=== PATIENT | female | born 1980 | race Caucasian/White ===

== ENCOUNTER 2016-10-24 15:19 | Emergency (ER) | payer OTHER ==
[2016-10-24 15:53] VITALS: BP 141/70
--- NOTE | 2016-10-24 15:59 | UC ---
Hip/Pelvis Pain - History Of Current Complaint Chief Complaint: UCBackPain Stated Complaint: BACK PAIN Time Seen by Provider: 10/24/16 15:53 Hx Obtained From: Patient Hx Last Menstrual Period: hx ablation ?: No Onset/Duration: Gradual Onset, Lasting Weeks - 4, Worse Since - 2 days Severity Initially: Mild Severity Currently: Moderate Character Of Pain: Sharp Aggravating Factor(s): Movement, Weight Bearing Alleviating Factor(s): Other - inversion table, ibuprofen, hot packs. Associated Signs And Symptoms: Positive: Negative - Risk Factors Septic Arthritis Risk Factor: Negative - Allergies/Home Medications Allergies/Adverse Reactions: Allergies Allergy/AdvReac Type Severity Reaction Status Date / Time Penicillins Allergy Intermediate Hives Verified 10/24/16 15:46 Home Medications: Home Medications Naproxen [Naproxen 500 MG TABS] 500 mg PO BID PRN 10/24/16 [History Confirmed ] PMH/Surg Hx/FS Hx/Imm Hx Endocrine History Of: Denies: Diabetes Cardiovascular History Of: Denies: Cardiac Disorders Respiratory History Of: Denies: Asthma Cancer History Of: Denies: Breast Cancer - Surgical History Surgical History: Yes Surgery Procedure, Year, and Place: Tubal Ligation, 2005 or 2006, [facility] - Family History Known Family History: Positive: Hypertension Negative: Cardiac Disease, Diabetes - Social History Occupation: Employed Full-time Lives: With Family Alcohol Use: Occasionally Substance Use Type: None Smoking Status (MU): Never Smoked Tobacco Have You Smoked in the Last Year: No - Immunization History Most Recent Influenza Vaccination: none Most Recent Tetanus Shot: unknown Review of Systems Musculoskeletal: Arthralgia All Other Systems Reviewed And Are Negative: Yes Physical Exam Triage Information Reviewed: Yes Appearance: Well-Appearing, Well-Nourished, Pain Distress - especially with any movement. Vital Signs: Initial Vital Signs Temp 98.9 F 10/24/16 15:47 Pulse 85 10/24/16 15:47 Resp 16 10/24/16 15:47 BP 141/70 10/24/16 15:47 Pulse Ox 100 10/24/16 15:47 Vital Signs Reviewed: Yes Eyes: Positive: Conjunctiva Clear Neck exam: Normal Respiratory Exam: Normal Cardiovascular Exam: Normal Abdomen Description: Positive: Nontender Musculoskeletal: Positive: No Edema, ROM Limited @ - Pelvis. Unable to stand up straight Neurological Exam: Normal Psychological Exam: Normal Skin Exam: Normal Procedures - Procedure Summary Procedure Summary: Injection Right Sacroiliac joint: Consent and Time out done. Betadine prep. 1cc kenalog 40 and 4cc each 1%xylo and 0.25% marcaine were injected in a fan pattern into the right SI. Excellent pain relief. Hip Injury Course/Dx - Differential Dx/Diagnosis Differential Diagnosis/HQI/PQRI: Septic Arthritis, Sprain, Strain Provider Diagnoses: Acute Sacroiliitis. S/P right sacroiliiac injection. Discharge - Discharge Plan Condition: Stable Disposition: HOME Patient Education Materials: Sacroiliitis (ED), Sacroiliac Joint Injection (GEN ) Forms: *Work Release Additional Instructions: Please follow up with the chiropractor tomorrow. Please start to do Yoga to prevent future back problems. Youtube: search, beginning yoga for back pain
[2016-10-24] MEDS ORDERED: Triamcinolone Acetonide* 40 MG/ML 1 ML VIAL INTRAARTIC ONE (16:06)
[2016-10-24] MEDS ORDERED: Lidocaine 1% INJ* 10 MG/ML 30 ML SDV INJ ONE (16:06)
[2016-10-24] MEDS ORDERED: Bupivacaine 0.5%* 50 ML VIAL INJ ONE (16:08)
[2016-10-24] MEDS ORDERED: Bupivacaine 0.25% SDV* 30 ML ONE (16:16)
[2016-10-24] MEDS ORDERED: Lidocaine 1%* 5 ML VIAL ONE (16:17)
== END 2016-10-24 16:43 | disposition home or self-care (01) ==
LOC: UCCORT 15:19
DX: M46.1 Sacroiliitis, not elsewhere classified (principal); Z88.0 Allergy status to penicillin
CPT/HCPCS: 20610; 99211; G0463; J3301

== ENCOUNTER 2017-04-15 12:53 | Emergency (ER) | payer OTHER ==
[2017-04-15 14:17] VITALS: BP 138/84
--- NOTE | 2017-04-15 14:47 | UC ---
Throat Pain/Nasal Jack HPI - HPI Summary HPI Summary: 36 YEAR OLD FEMALE PRESENTS WITH COMPLAINS OF SORE THROAT X 1 DAY. - History of Current Complaint Chief Complaint: UCRespiratory Stated Complaint: SORE THROAT,ALLERGIES Time Seen by Provider: 04/15/17 14:42 Hx Last Menstrual Period: n/a - Allergies/Home Medications Allergies/Adverse Reactions: Allergies Allergy/AdvReac Type Severity Reaction Status Date / Time Penicillins Allergy Intermediate Hives Verified 04/15/17 14:17 PMH/Surg Hx/FS Hx/Imm Hx - Surgical History Surgical History: Yes Surgery Procedure, Year, and Place: Tubal Ligation, 2005 or 2006, [facility]; uterine ablation - Family History Known Family History: Positive: None, Hypertension Negative: Cardiac Disease, Diabetes - Social History Alcohol Use: Occasionally Substance Use Type: None Smoking Status (MU): Former Smoker Have You Smoked in the Last Year: No - Immunization History Most Recent Influenza Vaccination: none Most Recent Tetanus Shot: unknown Review of Systems Constitutional: Negative Skin: Negative Eyes: Negative ENT: Dental Pain, Sore Throat, Nasal Discharge, Sinus Congestion Respiratory: Negative Cardiovascular: Negative Gastrointestinal: Negative Genitourinary: Negative Motor: Negative Neurovascular: Negative Musculoskeletal: Negative Neurological: Negative Psychological: Negative All Other Systems Reviewed And Are Negative: Yes Physical Exam Triage Information Reviewed: Yes Vital Signs: Initial Vital Signs Temp 37.7 C 04/15/17 14:10 Pulse 106 04/15/17 14:10 Resp 20 04/15/17 14:10 BP 138/84 04/15/17 14:10 Pulse Ox 100 04/15/17 14:10 Eye Exam: Normal ENT: Positive: Pharyngeal erythema, Nasal congestion Dental Exam: Normal Neck exam: Normal Neck: Positive: 1 Respiratory Exam: Normal Cardiovascular Exam: Normal Abdominal Exam: Normal Musculoskeletal Exam: Normal Neurological Exam: Normal Psychological Exam: Normal Skin Exam: Normal Throat Pain/Nasal Course/Dx - Differential Dx/Diagnosis Provider Diagnoses: SORE THROAT Discharge - Discharge Plan Condition: Stable Disposition: HOME Prescriptions: Azithromycin TAB* [Zithromax TAB (Z-ACACIA) 250 mg #6 tabs] 2 tab PO .TODAY, THEN 1 DAILY #1 acacia LoraTADine TAB(NF) [Claritin 10 MG TAB(NF)] 10 mg PO DAILY #30 tab Magic M W2 Juma/Maal/Nyst/Lido* 15 ml SWISH SPIT QID #120 ml Patient Education Materials: Pharyngitis (ED) Referrals: AL SalterGiorgio [Primary Care Provider] -
== END 2017-04-15 14:56 | disposition home or self-care (01) ==
LOC: UCCORT 12:53
DX: J02.9 Acute pharyngitis, unspecified (principal)
CPT/HCPCS: 87651; 99212; G0463

== ENCOUNTER 2017-05-10 10:59 | Emergency (ER) | payer OTHER ==
--- NOTE | 2017-05-10 11:29 | UC ---
Knee Pain HPI - HPI Summary HPI Summary: 36 y/o female with no PMH of knee pain/ injury with falls last thurs while ETOH , stated was unable to stand due to pain after incident, no swelling, pain over inside of knee. + walking now, increased pain with standing for longer periods , going up stairs. Pain radiates from inner thigh to top of calf bhind knee and to inner front of knee. no warmth. no improvement since incident. - History of Current Complaint Chief Complaint: UCLowerExtremity Stated Complaint: RIGHT KNEE PAIN Time Seen by Provider: 05/10/17 11:04 Hx Obtained From: Patient Hx Last Menstrual Period: n/a Onset/Duration: Sudden Onset, Lasting Days, Still Present Severity Initially: Moderate Severity Currently: Moderate Pain Scale Used: 0-10 Numeric - Allergies/Home Medications Allergies/Adverse Reactions: Allergies Allergy/AdvReac Type Severity Reaction Status Date / Time Penicillins Allergy Intermediate Hives Verified 05/10/17 11:20 PMH/Surg Hx/FS Hx/Imm Hx Previously Healthy: Yes - Surgical History Surgical History: Yes Surgery Procedure, Year, and Place: Tubal Ligation, 2005 or 2006, [facility]; uterine ablation - Family History Known Family History: Positive: None, Hypertension Negative: Cardiac Disease, Diabetes - Social History Alcohol Use: Occasionally Substance Use Type: None Smoking Status (MU): Former Smoker Have You Smoked in the Last Year: No - Immunization History Most Recent Influenza Vaccination: none Most Recent Tetanus Shot: unknown Review of Systems Musculoskeletal: Arthralgia, Calf Tenderness, Decreased ROM, Myalgia All Other Systems Reviewed And Are Negative: Yes Physical Exam Triage Information Reviewed: Yes Appearance: Well-Appearing, No Pain Distress, Well-Nourished Vital Signs Reviewed: Yes Musculoskeletal: Positive: ROM Intact, No Edema, Other: - ROM R knee 0-120, + tenderness to palpation over medial aspect of knee over MCL, pes. no ecchymosis, warmth, no instability to valgus/ varus stressing, neg ACL, PCL testing, no M/ L JL tenderness, no pain with palpation posterior knee. strength 5/5 with flex/ exte r knee. Neg valeriy Neurological: Positive: Alert, Muscle Tone Normal Psychological Exam: Normal Skin: Positive: Other - small superficial abrasions over b/l knees Knee Pain Course/Dx - Course Course Of Treatment: MCL sprain, hamstrain strain. hinged knee brace recommended, RICE, follow up within 1 week if no improvement - Differential Dx/Diagnosis Differential Diagnosis/HQI/PQRI: Dislocation, Fracture (Closed), Fracture (Open) , Sprain, Strain, Tendonitis Provider Diagnoses: MCL Sprain, hamstring strain r knee Discharge - Discharge Plan Condition: Good Disposition: HOME Prescriptions: Elastic Bandages & Supports [Knee Brace Adjustable Hin] 1 mis TOPICAL DAILY #1 mis Ibuprofen TAB* [Motrin TAB* 800 MG] 800 mg PO Q6H #90 tab Meds/Orders/Equipment: Orthotic Device/Brace Location: Determined By Patient Patient Education Materials: Knee Sprain (ED) Referrals: AL Liu [Primary Care Provider] - Additional Instructions: - increased rest, ICE 20 mins on, 20 mins off, brace for comfort x 2 weeks - If no improvement within 2 week follow up with orthopedics - Hinged knee brace for stability, may try over the counter brace or YOHAN wrap - Motrin 400-800mg every 6 hours for pain, inflammation - Continue stretching exercises, no running hiking x 1 week
[2017-05-10 12:11] VITALS: BP 133/86
== END 2017-05-10 12:11 | disposition home or self-care (01) ==
LOC: UCCORT 10:59
DX: S83.411A Sprain of medial collateral ligament of right knee, initial encounter (principal); W19.XXXA Unspecified fall, initial encounter; Y92.9 Unspecified place or not applicable; Z88.0 Allergy status to penicillin
CPT/HCPCS: 99212; G0463

== ENCOUNTER 2018-06-11 14:29 | Emergency (ER) | payer BC, OTHER ==
[2018-06-11 16:31] VITALS: BP 147/102
--- NOTE | 2018-06-11 16:44 | UC ---
Shoulder Pain HPI - HPI Summary HPI Summary: 37 y/o female presents to the urgent care c/o left shoulder pain s/p grabbing a log in the wrong way yesterday. Pain radiates to her left upper arm. Pain is dull at rest 4/10 and sharp w/ movement 8/10. Pt denies numbness or tingling sensation over the left arm, Pt has taking Ibuprofen 600mg PO yesterday to alleviate symptoms. No meds today. No Hx of shoulder injury. Pt denies SOB, chest pain, abdominal pain, N/V/D. - History of Current Complaint Chief Complaint: UCUpperExtremity Stated Complaint: LEFT SHOULDER PAIN Time Seen by Provider: 06/11/18 16:43 Hx Obtained From: Patient Hx Last Menstrual Period: Uterine Ablasion, no menes since-2015 Onset/Duration: Sudden Onset, Lasting Days - 1 day, Still Present, Worse Since - today Timing: Constant Severity Initially: Mild Severity Currently: Moderate Location Of Pain: Is Discrete @ - left shoulder Pain Intensity: 5 Pain Scale Used: 0-10 Numeric Character: Sharp - w/ movement, Dull - at rest Aggravating Factor(s): Movement, Lifting, External Rotation, Abduction Alleviating Factor(s): Rest, Ice, OTC Meds Associated Signs And Symptoms: Positive: Negative. Negative: Swelling, Fever, Weakness, Numbness/Tingling Related History: Dominant Hand Right - Risk Factors Non-Orthopedic Risk Factor: Negative DVT Risk Factors: Negative Septic Arthritis Risk Factor: Negative - Allergies/Home Medications Allergies/Adverse Reactions: Allergies Allergy/AdvReac Type Severity Reaction Status Date / Time Penicillins Allergy Hives Verified 06/11/18 16:23 Home Medications: Home Medications Omeprazole CAP* [Prilosec CAP* 20 MG] 40 mg PO DAILY 06/11/18 [History Confirmed 06/11/18] PMH/Surg Hx/FS Hx/Imm Hx Previously Healthy: Yes GI/ History: Gastroesophageal Reflux Psychological History: Anxiety - Surgical History Surgical History: Yes Surgery Procedure, Year, and Place: 2007 Tubal Ligation. 2016 - uterine ablation. BREAST AUGMENTATION. WISDOM TEETH SURG REMOVED. KNEE - SCOPED - ? Rt. Left Breast Bioposy x 2 - Family History Known Family History: Positive: Hypertension, Diabetes Negative: Cardiac Disease - Social History Occupation: Employed Full-time Lives: With Family Alcohol Use: Occasionally Alcohol Amount: Weekends Substance Use Type: None Smoking Status (MU): Former Smoker Have You Smoked in the Last Year: No - Immunization History Most Recent Influenza Vaccination: none Most Recent Tetanus Shot: unknown Review of Systems Constitutional: Negative Skin: Negative Eyes: Negative ENT: Negative Respiratory: Negative Cardiovascular: Negative Gastrointestinal: Negative Genitourinary: Negative Motor: Negative Neurovascular: Negative Musculoskeletal: Decreased ROM - left shoulder, Other: - left shoulder pain s/p injury Neurological: Negative Psychological: Negative Is Patient Immunocompromised?: No All Other Systems Reviewed And Are Negative: Yes Physical Exam - Summary Physical Exam Summary: Vital Signs Reviewed: Yes GENERAL: Well-Appearing, No Pain Distress, Well-Nourished - female w/o any apparent pain distress Eyes: Positive: Conjunctiva Clear - PERRL,EOMI ENT: Positive: Normal ENT inspection, Hearing grossly normal, Pharyngeal erythema - mild, Nasal drainage - clear, Uvula midline Neck: Positive: Supple, Nontender, No Lymphadenopathy Respiratory: Positive: Chest non-tender, Lungs clear, Normal breath sounds, No respiratory distress Cardiovascular: Positive: RRR, No Murmur, Pulses Normal, Brisk Capillary Refill Abdomen Description: Positive: Nontender, No Organomegaly, Soft. Negative: CVA Tenderness (R), CVA Tenderness (L) Bowel Sounds: Positive: Present Musculoskeletal: LF shoulder: The L shoulder is without obvious asymmetry or deformity when compared to the R shoulder. NO ecchymosis or bruising, no crepitus. No bony deformity or prominence of humeral head. No erythema, warmth. No Point Tenderness to palpation over the clavicle, or scapula. positive tenderness over Acromioclavicular joint and humeral head . NT to palpation of the bicipital groove . NT to palpation of the muscles of the sternocleidomastoid , pectoralis, biceps/triceps, deltoid, trapezius, . Limited ROM due to pain especially in adduction and abduction.on both passive and active, internal/ external rotation, flexion/extension. "empty can and drop arm test unable to perform due to pain. No axillary tenderness or lymphadenopathy. Normal sensation over the deltoid and fingers. Distal motor and neurovascular status is intact. Neurological Exam: Normal Psychological Exam: Normal Skin Exam: Normal Triage Information Reviewed: Yes Vital Signs: Initial Vital Signs Temp 97.7 F 06/11/18 16:26 Pulse 83 06/11/18 16:26 Resp 18 06/11/18 16:26 BP 147/102 06/11/18 16:26 Pulse Ox 100 06/11/18 16:26 Shoulder Course/Dx - Course Course Of Treatment: 37 y/o female presents to the urgent care c/o left shoulder pain s/p grabbing a log in the wrong way yesterday. Pain radiates to her left upper arm. Pain is dull at rest 4/10 and sharp w/ movement 8/10. Pt denies numbness or tingling sensation over the left arm, Pt has taking Ibuprofen 600mg PO yesterday to alleviate symptoms. No meds today. No Hx of shoulder injury. Pt denies SOB, chest pain, abdominal pain, N/V/D.Hx obtained. LF shoulder X-ray ordered: Impression: noraml radigraphic x-ray of left shoulder. Possibly a shoulder sprain. Pt's Rx Naproxen PO and immobilized w/ a shoulder sling for 2-3 days. Advised to f/u with PT referral for further evaluation and Orthopedic referral if not improvement of symptoms. Pt's BP is elevated today advised to decrease salt in diet, monitor BP and f/u with PCP for further management. D/c instructions explained. Pt understood and agreed w/ plan of care. - Differential Dx/Diagnosis Differential Diagnosis/HQI/PQRI: Arthritis, Contusion, Dislocation, Fracture ( Closed), Rotator Cuff Injury, Sprain, Strain, Tendonitis Provider Diagnoses: 1- Left shoulder pain s/p injury. 2- Left shoulder Tendonitis. 3- Elevated BP w/o Hx of HTN Discharge - Sign-Out/Discharge Documenting (check all that apply): Patient Departure All imaging exams completed and their final reports reviewed: Yes - Discharge Plan Condition: Stable Disposition: HOME Prescriptions: Naproxen TAB* [Naprosyn 250 mg TAB*] 250 mg PO Q8H PRN #30 tab PRN Reason: Pain Patient Education Materials: Shoulder Sprain (ED), Low-Sodium Diet (ED) Referrals: Cristy Munroe MD [Primary Care Provider] - 1 Week Phong Matson MD [Medical Doctor] - 1 Week Additional Instructions: 1-Please take medications as directed to alleviate pain and swelling. 2-Please apply ice, keep your shoulder immobilized with the shoulder sling for 3 -4 days and then resume movement slowly 3- Please f/u with Orthopedic Dr Matson or your PCP in 1 week is not improvement of symptoms for further evaluation and treatment. 4-Your BP is elevated today. please decrease salt in your diet, monitor BP and if it continues to be elevated please f/u with your PCP for further management - Billing Disposition and Condition Condition: STABLE Disposition: Home
[2018-06-11] MEDS ORDERED: Ketorolac INJ* 30 MG/ML 1 ML VIAL IM ONE (16:53)
--- NOTE | 2018-06-11 17:16 | RAD ---
INDICATION: Pain and decreased range of motion at the left shoulder COMPARISON: None. TECHNIQUE: 4 views of the left shoulder were obtained. FINDINGS: The adequately corticated bones are in normal alignment. Joint spaces appear maintained. No fracture, dislocation or focal bony abnormality is seen. IMPRESSION: Normal radiograph of the left shoulder. If the patient's symptoms persist, follow-up imaging is recommended.
== END 2018-06-11 17:45 | disposition home or self-care (01) ==
LOC: UCCORT 14:29
DX: M75.92 Shoulder lesion, unspecified, left shoulder (principal); X50.0XXA Overexertion from strenuous movement or load, initial encounter; Y93.89 Activity, other specified; Y92.9 Unspecified place or not applicable; R03.0 Elevated blood-pressure reading, without diagnosis of hypertension; Z88.0 Allergy status to penicillin
CPT/HCPCS: 96372; 99213; G0463; J1885

== ENCOUNTER 2018-09-10 11:25 | Emergency (ER) | payer BC ==
[2018-09-10 12:12] VITALS: BP 141/87
--- NOTE | 2018-09-10 12:36 | UC ---
Back Pain HPI - HPI Summary HPI Summary: 38 year old female presents with 1 week history of lower back pain. States she has history of bulging disc to L5-S1. Reports she was descending stairs this morning and had sudden onset of severe right lower back pain that radiates down her right leg to her knee. Describes pain as "sharp". Took naproxen without relief in pain. States has appointment scheduled with chiropractor tomorrow. Denies fever, chills, abdominal pain, nausea, vomiting, dysuria, frequency, urgency, hematuria, numbness, tingling, weakness of lower extremities, or loss of bowel or bladder control. - History of Current Complaint Chief Complaint: UCBackPain Stated Complaint: LOWER BACK COMPLAINT Time Seen by Provider: 09/10/18 12:19 Hx Obtained From: Patient Hx Last Menstrual Period: Uterine Ablasion, no menes since-2015 ?: No Onset/Duration: Sudden Onset Severity Currently: Severe Pain Intensity: 6 Back Pain: Radiates To - right leg Character: Sharp Aggravating Factor(s): Movement, Bending, Walking Alleviating Factor(s): Nothing Associated Signs And Symptoms: Positive: Pain with Weight Bearing. Negative: Fever, Weakness, Numbness, Tingling, Abdominal Pain, Flank Pain, Bladder Incontinence, Bowel Incontinence - Allergies/Home Medications Allergies/Adverse Reactions: Allergies Allergy/AdvReac Type Severity Reaction Status Date / Time Penicillins Allergy Hives Verified 09/10/18 12:06 Home Medications: Home Medications Naproxen TAB* [Naprosyn 250 mg TAB*] 1,000 mg PO ONCE 09/10/18 [History Confirmed 09/10/18] PMH/Surg Hx/FS Hx/Imm Hx Previously Healthy: Yes GI/ History: Gastroesophageal Reflux Psychological History: Depression - Surgical History Surgical History: Yes Surgery Procedure, Year, and Place: 2007 Tubal Ligation. 2016 - uterine ablation. BREAST AUGMENTATION. WISDOM TEETH SURG REMOVED. KNEE - SCOPED - ? Rt. Left Breast Bioposy x2 - Family History Known Family History: Positive: Hypertension, Diabetes - Social History Occupation: Employed Full-time Lives: With Family Alcohol Use: Occasionally Alcohol Amount: Weekends Substance Use Type: None Smoking Status (MU): Former Smoker Have You Smoked in the Last Year: No - Immunization History Most Recent Influenza Vaccination: none Most Recent Tetanus Shot: unknown Review of Systems All Other Systems Reviewed And Are Negative: Yes Constitutional: Negative: Fever, Chills Skin: Negative: Rash Gastrointestinal: Negative: Abdominal Pain, Vomiting, Nausea Genitourinary: Negative: Dysuria, Hematuria, Frequency, Urgency Motor: Negative: Weakness Neurovascular: Negative: Decreased Sensation Musculoskeletal: Positive: Other: - See HPI Is Patient Immunocompromised?: No Physical Exam - Summary Physical Exam Summary: GENERAL APPEARANCE: Well developed, well nourished, alert and cooperative. Appears to be uncomfortable leaning over exam table in position of comfort. HEAD: Atraumatic. normocephalic. CARDIAC: Normal S1 and S2. No S3, S4 or murmurs. Rhythm is regular. There is no peripheral edema, cyanosis or pallor. Extremities are warm and well perfused. Capillary refill is less than 2 seconds. LUNGS: Clear to auscultation and percussion without rales, rhonchi, wheezing or diminished breath sounds. ABDOMEN: Positive bowel sounds. Soft, nondistended, nontender. No guarding or rebound. No masses or hepatosplenomegally. No CVA tenderness. MUSKULOSKELETAL: ROM intact to all extremities. No joint erythema or tenderness. Normal muscular development. BACK: Examination of the spine reveals limping gait to right. No spinal deformity or tenderness. Mild soft tissue tenderness to right lower back without spasm. EXTREMITIES: No significant deformity or joint abnormality. No edema. Peripheral pulses intact. NEUROLOGICAL: Strength and sensation symmetric and intact throughout. SKIN: Skin normal color, texture and turgor with no lesions or eruptions. Triage Information Reviewed: Yes Vital Signs: Initial Vital Signs Temp 98.1 F 09/10/18 12:06 Pulse 97 09/10/18 12:06 Resp 18 09/10/18 12:06 BP 141/87 09/10/18 12:06 Pulse Ox 99 09/10/18 12:06 Vital Signs Reviewed: Yes Back Pain Course/Dx - Course Course Of Treatment: 38 year old female presents with 1 week history of lower back pain. States she has history of bulging disc to L5-S1. Reports she was descending stairs this morning and had sudden onset of severe right lower back pain that radiates down her right leg to her knee. Describes pain as "sharp". Took naproxen without relief in pain. States has appointment scheduled with chiropractor tomorrow. Denies fever, chills, abdominal pain, nausea, vomiting, dysuria, frequency, urgency, hematuria, numbness, tingling, weakness of lower extremities, or loss of bowel or bladder control. Exam reveals adult female who appears uncomfortable leaning over exam table in position of comfort. No tenderness over the spine. Mild soft tissue tenderness to right lumbar back. Strength and sensation intact to lower extremities. Since she already took naproxen at home earlier, provider her with a dose of hydrocodone-acetaminophen 5 mg/325 mg 1 tab in clinic. The [facility] was consulted and safe to prescribe. Reference #: [id number]. was driving. She is to continue with naproxen 500 mg BID and use cyclobenzaprine 1 tab every 8 hours as needed for severe pain or spasm. She is to keep her appointment with her chiropracter tomorrow. Follow up with PCP in 7 days if symptoms do not improve. Warning symptoms reviewed with patient. Verbalizes understanding and agrees with POC. - Differential Dx/Diagnosis Provider Diagnosis: Sciatica of right side associated with disorder of lumbar spine Discharge - Sign-Out/Discharge Documenting (check all that apply): Patient Departure All imaging exams completed and their final reports reviewed: No Studies - Discharge Plan Condition: Stable Disposition: HOME Prescriptions: Cyclobenzaprine HCl 10 mg PO Q8HR #21 tablet Patient Education Materials: Sciatica (ED) Referrals: Cristy Munroe MD [Primary Care Provider] - 7 Days (If no improvement in symptoms) Additional Instructions: Your history and physical are consistent with sciatica which is likely related to your underlying back problems. You were given a dose of a narcotic pain medication called hydrocodone- acetaminophen 5 mg/325 mg 1 tablet in the clinic for the pain. This medication does cause drowsiness so do not drive or operate machinery. Continue taking naproxen 500 mg every 12 hours with food for the next 7 days for pain. After 7 days, you may take every 12 hours as needed. Take cyclobenzaprine (Flexeril) 1 tab every 8 hours as needed for severe pain or spasm. This medication also causes drowsiness so do not take and drive or operate machinery. Keep your appointment with your chiropractor as scheduled tomorrow. Follow up with your primary care provider in 7 day if no improvement in symptoms. Seek immediate medical attention in the emergency room if you develop fever greater than 100.5 F, have worsening pain despite taking pain medication, develop numbness, tingling, or weakness of the lower extremities, lose control of your bowel or bladder, or have any worsening of symptoms. - Billing Disposition and Condition Condition: STABLE Disposition: Home
[2018-09-10] MEDS ORDERED: HYDROcodone/ACETAMIN 5-325 MG* 1 TAB PO ONE (13:06)
== END 2018-09-10 13:25 | disposition home or self-care (01) ==
LOC: UCCORT 11:25
DX: M54.31 Sciatica, right side (principal); M51.27 Other intervertebral disc displacement, lumbosacral region; Z88.0 Allergy status to penicillin; Z87.891 Personal history of nicotine dependence
CPT/HCPCS: 99212; G0463

== ENCOUNTER 2018-11-06 11:10 | Emergency (ER) | payer BC ==
[2018-11-06 11:33] VITALS: BP 159/92
--- NOTE | 2018-11-06 12:00 | UC ---
Throat Pain/Nasal Jack HPI - HPI Summary HPI Summary: 38 year old female with no PMH other then recent GI upset, being seen and evaluated by GI currently, presents iwth 2 weeks of sinus congestion, pressure, increasing, tried OTC like antihistamine, benadryl, alkaselzer sinus without benefit, continues to have pain, headache, worsening. no fever, chills, no ear pain, no other symptoms. + green drainage from nose - History of Current Complaint Chief Complaint: UCGeneralIllness Stated Complaint: SINUSES Time Seen by Provider: 11/06/18 11:40 Hx Obtained From: Patient Hx Last Menstrual Period: ablation ?: No - ablation Onset/Duration: Sudden Onset, Lasting Weeks, Worse Since - worsening daily Severity: Severe Pain Intensity: 6 Pain Scale Used: 0-10 Numeric Cough: Nonproductive - Allergies/Home Medications Allergies/Adverse Reactions: Allergies Allergy/AdvReac Type Severity Reaction Status Date / Time Penicillins Allergy Hives Verified 11/06/18 11:28 Home Medications: Home Medications L.acidoph,Paracasei, B.lactis [Probiotic] 1 each PO DAILY 11/06/18 [History Confirmed 11/06/18] Multivitamins/Minerals TAB* [Theragran/minerals TAB*] 1 tab PO DAILY 11/06/18 [ History Confirmed 11/06/18] PMH/Surg Hx/FS Hx/Imm Hx Previously Healthy: Yes - Surgical History Surgical History: Yes Surgery Procedure, Year, and Place: 2007 Tubal Ligation. 2016 - uterine ablation. BREAST AUGMENTATION. WISDOM TEETH SURG REMOVED. KNEE - SCOPED - ? Rt. Left Breast Bioposy x2 - Family History Known Family History: Positive: None, Hypertension, Diabetes Negative: Cardiac Disease - Social History Alcohol Use: Occasionally Alcohol Amount: Weekends Substance Use Type: None Smoking Status (MU): Former Smoker Have You Smoked in the Last Year: No - Immunization History Most Recent Influenza Vaccination: none Most Recent Tetanus Shot: unknown Review of Systems All Other Systems Reviewed And Are Negative: Yes Constitutional: Positive: Fatigue Skin: Positive: Negative Eyes: Positive: Negative ENT: Positive: Nasal Discharge, Sinus Congestion, Sinus Pain/Tenderness Respiratory: Positive: Negative Is Patient Immunocompromised?: No Physical Exam Triage Information Reviewed: Yes Appearance: No Pain Distress, Well-Nourished, Ill-Appearing - mild Vital Signs: Initial Vital Signs Temp 98.4 F 11/06/18 11:29 Pulse 76 11/06/18 11:29 Resp 18 11/06/18 11:29 BP 159/92 11/06/18 11:29 Pulse Ox 100 11/06/18 11:29 Eyes: Positive: Conjunctiva Clear ENT: Positive: Hearing grossly normal, Pharynx normal, TMs normal, Sinus tenderness - b/l frontal, max, Uvula midline. Negative: TM bulging, TM dull, TM red, Tonsillar swelling, Tonsillar exudate Neck: Positive: Supple, Nontender, No Lymphadenopathy Respiratory: Positive: Chest non-tender, Lungs clear, Normal breath sounds, No respiratory distress. Negative: Crackles, Rhonchi, Stridor, Wheezing Cardiovascular: Positive: RRR, No Murmur Psychological Exam: Normal Skin Exam: Normal Throat Pain/Nasal Course/Dx - Course Course Of Treatment: sinusitis, abx given , continue OTC care - Differential Dx/Diagnosis Differential Diagnosis/HQI/PQRI: Sinusitis Provider Diagnosis: Sinusitis Discharge - Sign-Out/Discharge Documenting (check all that apply): Patient Departure All imaging exams completed and their final reports reviewed: No Studies - Discharge Plan Condition: Good Disposition: HOME Prescriptions: Azithromyxin ACACIA (NF) [Z-Acacia (Zithromax) 250 mg tabs #6] 2 tab PO .TODAY, THEN 1 DAILY #6 tab Patient Education Materials: Sinusitis (ED) Forms: *Work Release Referrals: Chuck Borrero MD [Primary Care Provider] - Additional Instructions: - Increase fluid intake - ANtibiotics as directed - COntinue over the counter medications for symptoms - FOllow up with primary physician within 2-3 days or sooner if no improvement & to recheck blood pressure - Billing Disposition and Condition Condition: GOOD Disposition: Home
== END 2018-11-06 12:05 | disposition home or self-care (01) ==
LOC: UCCORT 11:10
DX: J32.9 Chronic sinusitis, unspecified (principal); Z88.0 Allergy status to penicillin; Z87.891 Personal history of nicotine dependence
CPT/HCPCS: 99212; G0463

== ENCOUNTER 2018-11-30 16:54 | Emergency (ER) | payer BC ==
[2018-11-30 18:07] VITALS: BP 155/92
--- NOTE | 2018-11-30 18:32 | ED ---
HPI Chest Pain - HPI Summary HPI Summary: pain across the back upper back ,worse with deep breathing, noted some shortness of breath. No association with exertion, sharp pain with pleuritic component. non smoker, No prior hx. of dvt or PE. - History of Current Complaint Chief Complaint: UCBackPain Time Seen by Provider: 11/30/18 17:58 Hx Obtained From: Patient Hx Last Menstrual Period: ABLATION IN 2016 Onset/Duration: Started Days Ago Timing: Intermittent Initial Severity: Moderate Current Severity: Moderate Pain Intensity: 7 Chest Pain Location: Lower Sternal Chest Pain Radiates To:: Back, Shoulder Character: Sharp/Stabbing Aggravating Factor(s): Nothing Alleviating Factor(s): Rest - Allergy/Home Medications Allergies/Adverse Reactions: Allergies Allergy/AdvReac Type Severity Reaction Status Date / Time Penicillins Allergy Hives Verified 11/06/18 11:28 Home Medications: Home Medications Hyoscyamine TAB* [Anaspaz 0.125 MG TAB*] 1 each PO BID 11/30/18 [History Confirmed 11/30/18] PMH/Surg Hx/FS Hx/Imm Hx Endocrine/Hematology History: Denies: Hx Diabetes Cardiovascular History: Denies: Hx Hypertension, Hx Pacemaker/ICD Respiratory History: Denies: Hx Asthma GI History: Reports: Hx Irritable Bowel History: Denies: Hx Renal Disease Sensory History: Denies: Hx Hearing Aid Psychiatric History: Denies: Hx Panic Disorder - Cancer History Hx Chemotherapy: No Hx Radiation Therapy: No - Surgical History Surgery Procedure, Year, and Place: 2007 Tubal Ligation. 2016 - uterine ablation. BREAST AUGMENTATION. WISDOM TEETH SURG REMOVED. KNEE - SCOPED - ? Rt. Left Breast Bioposy x2 Infectious Disease History: No Infectious Disease History: Denies: Hx Clostridium Difficile, Hx Hepatitis, Hx Human Immunodeficiency Virus (HIV), Hx of Known/Suspected MRSA, Hx Shingles, Hx Tuberculosis, Hx Known/ Suspected VRE, Hx Known/Suspected VRSA, History Other Infectious Disease, Traveled Outside the [place] in Last 30 Days - Family History Known Family History: Positive: None, Hypertension, Diabetes Negative: Cardiac Disease - Social History Alcohol Use: Occasionally Alcohol Amount: Weekends Substance Use Type: Reports: None Smoking Status (MU): Former Smoker Have You Smoked in the Last Year: No Review of Systems Constitutional: Negative Eyes: Negative ENT: Negative Cardiovascular: Negative Respiratory: Other Positive: Shortness Of Breath Positive: Abdominal Pain, Diarrhea Genitourinary: Negative Musculoskeletal: Negative All Other Systems Reviewed And Are Negative: Yes Physical Exam Triage Information Reviewed: Yes Vital Signs On Initial Exam: Initial Vitals Temp Pulse Resp BP Pulse Ox 36.6 C 80 22 155/92 99 11/30/18 17:59 11/30/18 17:59 11/30/18 17:59 11/30/18 17:59 11/30/18 17:59 Vital Signs Reviewed: Yes Appearance: Positive: Well-Appearing, Pain Distress Skin: Positive: Warm, Dry Head/Face: Positive: Normal Head/Face Inspection Eyes: Positive: Normal ENT: Positive: Normal ENT inspection Neck: Positive: Supple Respiratory/Lung Sounds: Positive: Clear to Auscultation Cardiovascular: Positive: Normal Abdomen Description: Positive: Other: - diffusely mildly tender , no rebound , rigidity Bowel Sounds: Positive: Present Diagnostics - Vital Signs Vital Signs Temp Pulse Resp BP Pulse Ox 11/30/18 17:59 36.6 C 80 22 155/92 99 - Laboratory Lab Statement: Any lab studies that have been ordered have been reviewed, and results considered in the medical decision making process. Chest Pain Course/Dx - Diagnoses Provider Diagnoses: Pleuritic chest pain, Hematuria Is Visit Related: No Discharge - Sign-Out/Discharge Documenting (check all that apply): Patient Departure All imaging exams completed and their final reports reviewed: Yes - Discharge Plan Condition: Fair Disposition: HOME-RECOMMEND TO ED Patient Education Materials: Pulmonary Embolism (ED) Referrals: Chuck Borrero MD [Primary Care Provider] - - Billing Disposition and Condition Condition: FAIR Disposition: Home-Recommend to ED
[2018-11-30] MEDS ORDERED: Ondansetron ODT TAB* 4 MG PO ONE (18:36)
--- NOTE | 2018-12-01 08:16 | UC ---
- Progress Note Progress Note: Patient Name: ANNE COBB Medical Record#: [id number] Ordering Physician: Agustin Colon MD Acct.#: [id number] : 1980 Age: 38 Sex: F [place] [facility] [place] Date: 11/30/181814 ADM Status: DEP ER Order Information: CHEST PA & LAT 2 VWS Accession Number: [id number] CPT: 40982 INDICATION: Chest pain. COMPARISON: There are no relevant prior studies available for comparison. TECHNIQUE: Dual-energy PA and lateral views of the chest were obtained. FINDINGS: The heart is within normal limits in size. Mediastinal and hilar contours appear within normal limits. The lungs are clear. No pleural effusion is present. IMPRESSION: NO EVIDENCE FOR ACTIVE CARDIOPULMONARY DISEASE. R0 Preliminary Imaging Read R0 <Electronically signed by Del Sequeira MD in OV> 12/01/18731 Dictated By: Del Sequeira MD Dictated Date/Time: 12/01/18731 Transcribed Date/Time: 12/01/18730 Copy to: CC:Chuck Borrero MD; Agustin Colon MD Imaging - [facility] Imaging - [facility] [address] [place] [address] ph ([phone]) ph ([phone]) ph ([phone]) This report is only to be considered final once signed by the Provider(s) as displayed in the "<Electronically Signed by >" field (s). Absence of a signature indicates the report is in a draft status and still needs to be finalized. In the event this document was created by someone other than the signing Provider, the individual initiating the document will be listed in the "Entered by:" or "Dictated by:" mccarthy. 1 of 1 Course/Dx - Diagnoses Provider Diagnoses: Pleuritic chest pain, Hematuria Is Visit Related: No Discharge - Sign-Out/Discharge Documenting (check all that apply): Post-Discharge Follow Up All imaging exams completed and their final reports reviewed: Yes - Discharge Plan Condition: Fair Disposition: HOME-RECOMMEND TO ED Patient Education Materials: Pulmonary Embolism (ED) Referrals: Chuck Borrero MD [Primary Care Provider] - - Billing Disposition and Condition Condition: FAIR Disposition: Home-Recommend to ED
== END 2018-11-30 19:27 | disposition home health service (06) ==
LOC: UCCORT 16:54
DX: R07.89 Other chest pain (principal); R31.9 Hematuria, unspecified; M54.89 Other dorsalgia; Z88.0 Allergy status to penicillin; Z87.891 Personal history of nicotine dependence
CPT/HCPCS: 71046; 81003; 93005; 99212; A9270-GY; G0463

== ENCOUNTER 2019-01-14 12:00 | Emergency (ER) | payer BC ==
--- OUTSIDE RECORDS SUMMARY | 2019-01-14 13:09 | XMS REPORT | Continuity of Care Document ---
:1980 External Reference #:[id number] Author Name SABINE Cadena-Danica Address [address] [place] [address] Care Team Providers Name Role Phone Zainab Conroy V, FNP Primary Care Physician Unavailable Payers Date Identification Numbers Payment Provider Subscriber Policy Number: [id number] /BS Of SAUD Mary Sal PayID: [id number] [address] [address] [place] [address] Advance Directives Description No Information Available Problems Date Description Provider Status Onset: 12/12/2018 Esophagitis Chetna White M.D. Active Onset: 12/12/2018 Flatulence, eructation and gas pain Chetna White M.D. Active Onset: 12/12/2018 Allergic rhinitis Chetna White M.D. 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 Home Environment Has a window air conditioner Home Environment Stairs are present Home Environment Unfinished Basement Home Environment Mattress is 10 years old Home Environment Mattress is not encased in an allergy proof case Home Environment Regular Mattress Home Environment Pillows are not encased in an allergy proof case Home Environment Pillows are polyester Home Environment Does not use a dehumidifier Home Environment There are no draperies in the home Home Environment The home is evangelina Home Environment The floors are carpeted Home Environment The floors are tile Home Environment The floors are wood Home Environment Uses forced air heating Home Environment Uses natural gas heating Smoke-Free Home is smoke-free Smoke-Free Work is smoke-free Pets 1 dog 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[employer] ETOH Use Occasionally consumes alcohol Tobacco Use Start: Unknown End: Patient is a former quit 12 years ago Unknown smoker Recreational Drug Use Denies Drug Use Allergies, Adverse Reactions, Alerts Date Description Reaction Status Severity Comments 12/12/2018 Penicillin Active Possibly Medications Medication Date Status Form Strength Qnty SIG Indications Ordering Provider Escitalopram Active Tablets 20mg take 1 Unknown Oxalate 000 tablet by mouth once daily Hyoscyamine Active Tablets ER 0.375mg take 1 Unknown Sulfate ER 000 12HR tablet by mouth every 12 hours [address] Active Capsules DR 40mg 1 tab Unknown 000 daily. Ibu Active Tablets 600mg take 1 Unknown 000 tablet by mouth three times a day if needed Alprazolam Active Tablets 0.25mg take 1 Unknown 000 tablet by mouth once daily if needed maximum daily dose of 1 Vitamin D High Active Capsules 1000Unit 1 tablets Unknown Potency 000 by mouth everyday. Probiotic Active Capsules 1 cap Unknown Acidophilus 000 daily. Beads Immunizations Description No Information Available Vital Signs Date Vital Result Comment 12/26/2018 1:48pm Height 64 inches 5'4" Weight 227.00 lb Weight 102.967 kg Respiratory Rate 20 /min Heart Rate 85 /min O2 % BldC Oximetry 98 % BP Systolic 144 mmHg BP Diastolic 90 mmHg BMI (Body Mass Index) 39.0 kg/m2 12/12/2018 9:16am Height 64 inches 5'4" Weight 225.00 lb Weight 102.060 kg Respiratory Rate 18 /min Heart Rate 80 /min O2 % BldC Oximetry 97 % BP Systolic 137 mmHg BP Diastolic 80 mmHg BMI (Body Mass Index) 38.6 kg/m2 Results Test Date Facility Test Result H/L Range Note Laboratory test 12/13/2018 [facility] Cat <0.10 kU/L Class 0 1 finding [address] [facility] Hair/[place] [address] [phone] Dog Hair/Dander <0.10 kU/L Class 0 D Farinae Mite <0.10 kU/L Class 0 D Pteronyssinus 0.26 kU/L Class 0/I Rast Common Silver Birch T3 <pending> [place],White <0.10 kU/L Class 0 Maple/Riley Ige T001 <0.10 kU/L Class 0 Demarco <0.10 kU/L Class 0 Orchard Grass <0.10 kU/L Class 0 Ragweed,Short/ <0.10 kU/L Class 0 Walker Elder,Rough W016 <0.10 kU/L Class 0 Rast Common Pigweed <pending> Rast Farias's Quarters w10 <pending> Rast Plantain, Bengali W9 <pending> Alternaria Alternata <0.10 kU/L Class 0 Apergillis Fumigatus Ige <0.10 kU/L Class 0 Rast AAA Foods 12 12/13/2018 [facility] Derry <0.10 kU /L Class 0 Panel [address] [place] [address] [phone] Egg White <0.10 kU/L Class 0 Milk (Cow) <0.10 kU/L Class 0 Peanut <0.10 kU/L Class 0 2 Soybean <0.10 kU/L Class 0 Wheat <0.10 kU/L Class 0 Beef <0.10 kU/L Class 0 Chicken <0.10 kU/L Class 0 Chocolate/Bowie F052 <0.10 kU/L Class 0 F033 [place] <0.10 kU/L Class 0 Rice <0.10 kU/L Class 0 Tomato <0.10 kU/L Class 0 Laboratory test 12/13/2018 [facility] Birch,White < 0.10 kU/L Class 0 3 finding [address] [place] [address] [phone] Plantain,Bengali <0.10 kU/L Class 0 Pigweed,Rough <0.10 kU/L Class 0 Lambs Quarter <0.10 kU/L Class 0 1 J30.9 R14.0 2 Levels of Specific IgE Class Description of Class ----- < 0.10 0 Negative 0.10 - 0.31 0/I Equivocal/Low 0.32 - 0.55 I Low 0.56 - 1.40 II Moderate 1.41 - 3.90 III High 3.91 - 19.00 IV Very High 19.01 - 100.00 V Very High >100.00 Very High 3 Performed at: [address] [id number] Systems Administration Analyst: Zoraida Amos MD, Phone: [phone] Procedures Date Code Description Status 12/26/2018 98072 Skin Test Scratch # Of Units ____ Completed Encounters Type Date Location Provider Dx Diagnosis Office Visit 12/26/2018 [facility] Dana Zamora Z23 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 Her skin testing to soy and egg white were positive. Your allergy testing to dust mites, cat and dog were positive. Discussed the three ways in which allergies are managed: (1 ) avoidance measures; (2) medications; (3) allergy immunotherapy. Discussed environmental controls. -Dust mitecontrol barriers are recommended for mattress and pillows. Make sure the product specifies a pore size rating of 2-5 microns. Bigger and unspecified pore sizes may not be effective. -Wash all bedding in hot water once weekly. -Keep bedroom humidity below 50%. Dust mites thrive well in high humidity.
--- OUTSIDE RECORDS SUMMARY | 2019-01-14 13:09 | XMS REPORT | Continuity of Care Document ---
:1980 External Reference #:[id number] Author Name Xavi Conroy FNP Address [address] [facility] [place] [place] [address] Care Team Providers Name Role Phone Xavi Conroy, SHANTANU Care Team Information Pack Operator Unavailable Xavi Conroy, LADLE FILLER Primary Care Physician Unavailable Payers Date Identification Numbers Payment Provider Subscriber Policy Number: [id number] [employer] Mary Sal PayID: [id number] [address] [address] [place] [address] Effective: 2017 Policy Number: [id number] [facility] Ins Mary [employer]am [employer] Onset: 2017 Group Number: [id number] [address] Group Name: F: [phone] [place] [address] PayID: [id number] Advance Directives Description No Information Available Problems Date Description Provider Status Onset: 07/01/2017 Anxiety state Cristy Munroe M.D. Active Onset: 07/01/2017 Moderate recurrent major Cristy Munroe M.D. Active depression Onset: 07/01/2017 Migraine with typical aura Cristy Munroe M.D. Active Onset: 11/13/2012 Fibrocystic disease of breast Danny Rosenbaum MD Active Onset: 07/18/2013 Low back pain Tony Ordonez MD, FACS Active Onset: 07/18/2013 Sciatica Tony Ordonez MD, FACS Active Onset: 08/20/2013 Displacement of lumbar Tony Ordonez MD, FACS Active intervertebral disc without myelopathy Onset: 08/19/2017 Injury of digital nerve of thumb Alisa, Fito, M.D. Active Onset: 06/15/2018 Sprain of shoulder rotator cuff Krissy Mclean PA Active Onset: 12/16/2018 Irritable bowel syndrome Xavi Conroy FNP Active Note: Document: 12/13/18 - .Note Followup Gastroenterolog Onset: 11/13/2012 Breast finding Danny Rosenbaum MD Resolved Resolved: 09/20/2018 Onset: 03/14/2013 Fibroadenosis of breast Danny Rosenbaum MD Resolved Resolved: 09/20/2018 Family History Date Family Member(s) Observation Comments General Cancer General Diabetes General Thyroid Disease General Atrial Fibrillation General Anxiety General Chronic Obstructive Pulmonary Disease (COPD) General Depression General Hypertension Father Atrial Fibrillation Father CAD Father Alive Mother Thyroid Disease Mother Anxiety Mother Depression Mother Alive Grandfather Heart Disease Grandmother Diabetes Paternal Grandfather due to Head () - @ age 76 injury from fall Paternal Grandmother Alive : (age 50 Maternal Grandfather due to Lung around age 50 Years) Cancer Maternal Grandmother Diabetes Mellitus Type 2 Maternal Grandmother Benign Essential Hypertension Maternal Grandmother Chronic Obstructive Pulmonary Disease (COPD) Maternal Grandmother Thyroid Disease Maternal Grandmother Alive Social History Type Date Description Comments Sex Unknown Lives With Lives With Family Diet Patient follows no dietary restrictions Occupation [employer] Work Status Full-time Hand Dominance Right-handed Tobacco Use Start: Unknown End: Unknown Former Cigarette Smoker Quit Tobacco Use Start: Unknown End: Unknown Quit Smoking Status Reviewed: 09/20/18 Quit ETOH Use Currently consumes alcohol socially ETOH Use Drinks 4 Alcoholic Beverages Per Week Tobacco Use Start: Unknown End: Unknown Patient is a former smoker Allergies, Adverse Reactions, Alerts Date Description Reaction Status Severity Comments 06/10/2015 Penicillin Active 11/13/2012 NKDA Inactive Medications Medication Date Status Form Strength Qnty SIG Indications Ordering Provider Escitalopram 12/05/19 Active Tablets 20mg 30tab take 1 Wade, Oxalate 19 s tablet by MD Kristy mouth once daily Ibuprofen 06/15/20 Active Tablets 600mg 90tab 1 by mouth Andrea, 18 s three Cherelle, times a MD day as needed Alprazolam 11/11/19 Active Tablets 0.25mg 30tab 1 by mouth F41.9 Shaneka, 18 s every day Cristy, as needed Darcy Reference #: [id number] Omeprazole 08/29/20 Active Capsules 40mg 30cap 1 by mouth Rafiq Olvera DR s every day MD Kristy Colestipol HCL Active Tablets 1gm take 2 Unknown 00 tablets by mouth twice a day Cholestyramine Active Packet 4gm Use 1 Unknown 00 Packet Mixed In Liquid By Mouth Daily Tramadol HCL 06/15/20 Hx Tablets 50mg 20tab 1 by mouth Andrea 18 - s every 6 Cherelle, 09/20/20 hour as 18 needed pain Betamethasone 10/17/19 Hx Cream 0.1% 45uni apply to Alisa, Valerate 18 - ts hands Fito, 06/15/20 twice M.D. 18 daily Oxycodone HCL 09/08/20 Hx Tablets 5mg 30tab 1 every S64.30xD Alisa, 17 - s 4-6 hour Fito, 11/11/19 as needed M.D. 18 pain Oxycodone HCL 08/22/20 Hx Tablets 5mg 30tab 1 every S64.30xD Alisa, 17 - s 4-6 hour Fito, 08/30/20 as needed M.D. 17 pain Phendimetrazine 08/05/20 Hx Tablets 35mg take 1 Geiger, Tartrate 17 - tablet by Chad, 11/11/19 mouth M.D. 18 twice daily Vitamin D3 07/05/20 Hx Capsules [id number] 4caps 1 tab by Shaneka 17 - mouth Cristy, Unknown every M.D. weekly Lexapro 07/01/20 Hx Tablets 20mg 30tab 1 by mouth Rafiq 17 - s every day Jenniferl 12/05/19 SABINE brower 19 Nabumetone 06/10/20 Hx Tablets 500mg 60tab take 1 [place], 15 - s tablet by Francisco 07/01/20 mouth 2 M.D. 17 times a day with food Mobic 11/27/19 Hx Tablets 7.5mg 60tab 1 po bid [place], 08 - s pc MD Yohannes 06/10/20 15 Vicodin 11/13/19 Hx Tablets 5-500mg 40tab take 1-2 [place], 08 - s tablets po MD Yohannes 06/10/20 q 4hr prn 15 pain. Prilosec Hx Capsules 20mg 30cap 1 po qd Unknown - DR raman 07/01/20 17 Amitriptyline Hx Tablets 25mg 30tab 1 by mouth Shaneka, MARCO - s every day Elisabet Muniz at bedtime M.DZion Multivitamins Hx Tablets 1 po qd Unknown 07/01/20 17 Acidophilus Hx Capsules 100mg Unknown Probiotic 07/01/20 17 Xanax Hx Tablets 0.25mg 60tab 1 tab po Unknown qhs prn Unknown Ibuprofen Hx Tablets prn Unknown 07/01/20 17 Aleve Hx Tablets 220mg 1 po qd Unknown - prn 07/01/20 17 Lexapro Hx Tablets 10mg 30tab 1 po qd Unknown s 07/01/20 17 Lexapro Hx Tablets 10mg 1 by mouth , - every day Cristy 07/01/20 M.DZion 17 Vitamin D High Hx Capsules 1000Unit Unknown Potency 07/01/20 17 Vitamin B-12 Hx Tablets 500mcg 1 by mouth Unknown Natural 00 - every day Unknown Acidophilus Hx Capsules Unknown 00 - Unknown Xanax Hx Tablets 0.25mg Unknown 07/01/20 17 Omeprazole Hx Capsules 20mg Unknown - 07/01/20 17 [place] 3 Hx Capsules 1000mg 1 by mouth Unknown 00 - every day Unknown Omeprazole Hx Capsules 40mg 30cap 1 by mouth - DR raman every day Elisabet Muniz M.DZion Xanax Hx Tablets prn F41.9 Unknown 11/11/19 18 Airborne Hx Chewtabs Unknown 11/11/19 18 Ibuprofen Hx Tablets 600mg Unknown 06/15/20 18 Medications Administered in Office Medication Date Status Form Strength Qnty SIG Indications Ordering Provider Methylprednisolone 07/06 Administered Injection angella Mendez /Carly Villarreal (Depomedrol) 80mg injection Immunizations CPT Code Status Date Vaccine Lot # [id number] Refused 07/01/2017 Influenza Vaccine (Fluzone) Age 3 And Older Vital Signs Date Vital Result Comment 09/20/2018 1:49pm BP Systolic Sitting Resting Right Arm 134 mmHg BP Diastolic Sitting Resting Right Arm 86 mmHg Heart Rate 82 /min Respiratory Rate 18 /min Height 64.5 inches 5'4.50" Weight 224.25 lb BMI (Body Mass Index) 37.9 kg/m2 BSA (Body Surface Area) 2.06 m2 [place] body weight in kilograms 56 kg 09/10/2018 12:00am BP Systolic 141 mmHg BP Diastolic 87 mmHg Body Temperature 98.1 F Heart Rate 97 /min Respiratory Rate 18 /min Height 64.5 inches Weight 200.00 lb BMI (Body Mass Index) 33.7 kg/m2 O2 % BldC Oximetry 99 % 07/27/2018 1:32pm BP Systolic 152 mmHg BP Diastolic 98 mmHg Body Temperature 98.2 F Heart Rate 56 /min Height 64.5 inches 5'4.50" Weight 215.00 lb BMI (Body Mass Index) 36.3 kg/m2 BSA (Body Surface Area) 2.03 m2 [place] body weight in kilograms 56 kg O2 % BldC Oximetry 98 % Pain Level 1 07/06/2018 1:13pm BP Systolic 124 mmHg BP Diastolic 78 mmHg Body Temperature 98.1 F Heart Rate 81 /min Height 64.5 inches 5'4.50" Weight 219.00 lb BMI (Body Mass Index) 37.0 kg/m2 BSA (Body Surface Area) 2.04 m2 [place] body weight in kilograms 56 kg O2 % BldC Oximetry 98 % Pain Level 2 06/23/2018 10:44am BP Systolic 144 mmHg BP Diastolic 94 mmHg Body Temperature 981.0 F Heart Rate 115 /min Height 64.5 inches 5'4.50" Weight 211.00 lb BMI (Body Mass Index) 35.7 kg/m2 BSA (Body Surface Area) 2.01 m2 [place] body weight in kilograms 56 kg O2 % BldC Oximetry 97 % Pain Level 3 06/15/2018 1:18pm BP Systolic 139 mmHg BP Diastolic 90 mmHg Body Temperature 98.4 F Heart Rate 92 /min Height 64.5 inches 5'4.50" Weight 213.00 lb BMI (Body Mass Index) 36.0 kg/m2 BSA (Body Surface Area) 2.02 m2 [place] body weight in kilograms 56 kg O2 % BldC Oximetry 96 % Pain Level 4 02/17/2018 11:03am BP Systolic 124 mmHg BP Diastolic 78 mmHg Body Temperature 98.1 F Heart Rate 64 /min Height 64.5 inches 5'4.50" Weight 204.00 lb BMI (Body Mass Index) 34.5 kg/m2 BSA (Body Surface Area) 1.98 m2 [place] body weight in kilograms 56 kg O2 % BldC Oximetry 98 % 11/11/2017 1:37pm BP Systolic 104 mmHg BP Diastolic 66 mmHg Body Temperature 97.3 F Heart Rate 70 /min Height 64.5 inches 5'4.50" Weight 207.00 lb BMI (Body Mass Index) 35.0 kg/m2 BSA (Body Surface Area) 2.00 m2 [place] body weight in kilograms 56 kg O2 % BldC Oximetry 98 % 10/12/2017 1:53pm BP Systolic 125 mmHg BP Diastolic 89 mmHg Body Temperature 98.5 F Heart Rate 76 /min Respiratory Rate 16 /min Height 64.5 inches 5'4.50" Weight 199.00 lb BMI (Body Mass Index) 33.6 kg/m2 BSA (Body Surface Area) 1.96 m2 [place] body weight in kilograms 56 kg 09/08/2017 9:20am BP Systolic 139 mmHg BP Diastolic 88 mmHg Body Temperature 98.8 F Heart Rate 75 /min Respiratory Rate 15 /min Height 64.5 inches 5'4.50" [place] body weight in kilograms 56 kg 09/06/2017 2:55pm BP Systolic 141 mmHg BP Diastolic 90 mmHg Body Temperature 97.8 F Heart Rate 81 /min Respiratory Rate 15 /min Height 64.5 inches 5'4.50" Weight 195.00 lb BMI (Body Mass Index) 33.0 kg/m2 BSA (Body Surface Area) 1.95 m2 [place] body weight in kilograms 56 kg 08/30/2017 3:15pm BP Systolic 169 mmHg BP Diastolic 114 mmHg Body Temperature 97.4 F Heart Rate 78 /min Respiratory Rate 16 /min Height 64.5 inches 5'4.50" Weight 195.00 lb BMI (Body Mass Index) 33.0 kg/m2 BSA (Body Surface Area) 1.95 m2 [place] body weight in kilograms 56 kg 08/22/2017 2:33pm BP Systolic Sitting Right Arm 155 mmHg BP Diastolic Sitting Right Arm 93 mmHg Heart Rate 80 /min Height 66 inches 5'6" Weight 200.00 lb BMI (Body Mass Index) 32.3 kg/m2 BSA (Body Surface Area) 2.00 m2 [place] body weight in kilograms 59 kg 08/19/2017 9:58am BP Systolic Sitting Right Arm 139 mmHg BP Diastolic Sitting Right Arm 96 mmHg Body Temperature 98.2 F Heart Rate 65 /min Respiratory Rate 16 /min Height 66 inches 5'6" Weight 201.38 lb BMI (Body Mass Index) 32.5 kg/m2 BSA (Body Surface Area) 2.01 m2 [place] body weight in kilograms 59 kg 08/05/2017 1:01pm BP Systolic 118 mmHg BP Diastolic 80 mmHg Height 65 inches 5'5" Weight 204.25 lb BMI (Body Mass Index) 34.0 kg/m2 BSA (Body Surface Area) 2.00 m2 [place] body weight in kilograms 57 kg 07/01/2017 1:48pm BP Systolic 130 mmHg BP Diastolic 86 mmHg Body Temperature 98.3 F Heart Rate 71 /min Height 65 inches 5'5" Weight 208.00 lb BMI (Body Mass Index) 34.6 kg/m2 BSA (Body Surface Area) 2.01 m2 [place] body weight in kilograms 57 kg O2 % BldC Oximetry 99 % 06/10/2015 2:29pm BP Systolic Sitting Left Arm 136 mmHg BP Diastolic Sitting Left Arm 88 mmHg Height 65 inches 5'5" Weight 191.00 lb BMI (Body Mass Index) 31.8 kg/m2 BSA (Body Surface Area) 1.94 m2 07/18/2013 10:15am BP Systolic Sitting Right Arm 114 mmHg BP Diastolic Sitting Right Arm 68 mmHg Height 64.5 inches 5'4.50" Weight 169.00 lb BMI (Body Mass Index) 28.6 kg/m2 BSA (Body Surface Area) 1.83 m2 03/14/2013 1:36pm BP Systolic Sitting Left Arm 128 mmHg BP Diastolic Sitting Left Arm 90 mmHg Body Temperature 97.8 F Respiratory Rate 16 /min Height 64.50 inches 5'4.50" Weight 171.00 lb BMI (Body Mass Index) 28.9 kg/m2 BSA (Body Surface Area) 1.84 m2 11/13/2012 10:34am BP Systolic Sitting Right Arm 125 mmHg BP Diastolic Sitting Right Arm 76 mmHg Heart Rate 82 /min Respiratory Rate 20 /min Height 64.50 inches 5'4.50" Weight 175.00 lb BMI (Body Mass Index) 29.6 kg/m2 11/13/2007 9:07am Height 65.5 inches 5'5.50" Weight 141.00 lb Results Test Date Facility Test Result H/L Range Note Comprehensive Metabolic 11/30/2018 [facility] Glucose 99 mg/dL N 74-106 1 Panel [address] [place] [address] [phone] BUN 12 mg/dL N 7-18 Creatinine 0.8 mg/dL N 0.6-1.3 Glom Filtration Rate, Estimate >60 mL/min >60 If >60 mL/min >60 2 BUN/Creat 15.0 ratio Sodium 138 mmol/L N 136-145 Potassium 3.6 mmol/L N 3.5-5.1 Chloride 102 mmol/L N 98-107 Carbon Dioxide 29 mmol/L N 21-32 Anion Gap 7 mEq/L Low 8-16 Calcium 8.8 mg/dL N 8.5-10.1 Total Protein 7.8 g/dL N 6.4-8.2 Albumin 3.8 g/dL N 3.4-5.0 Globulin 4.0 g/dL N 1.9-4.3 Alb/Glob 1.0 ratio Bilirubin,Total 0.2 mg/dL N 0.2-1.0 Sgot/Ast 25 U/L N 15-37 SGPT/Alt 48 U/L N 12-78 Alkaline Phosphatase 72 U/L N 45-117 Laboratory test finding 11/30/2018 [facility] Troponin-I < 0.015 ng/mL 3 [address] [place] [address] [phone] HCG,Serum (Qualitative) NEGATIVE (Negative) 4 CBC W/Automated Diff 11/30/2018 [facility] White Blood 9.0 K/uL N 3.1-10.7 [address] [place] [address] [phone] Red Blood Count 4.33 M/uL N 3.90-5.40 Hemoglobin 13.6 gm/dL N 11.6-15.8 Hematocrit 41.0 % N 36.0-46.1 Mean Cell Volume 94.7 fl N 80.9-99.0 Mean Corpuscular HGB 31.4 pg N 25.9-32.7 Mean Corpuscular HGB Conc 33.2 g/dL N 30.8-34.3 Platelet Count 275 K/uL N 155-360 Red Cell Distri Width SD 41.1 fl N 36-47 Red Cell Distri Width %CV 12.2 % N 11.7-14.4 Mean Platelet Volume 10.2 fL N 8.9-12.4 Neut% 64.3 % N 40.4-72.8 Lymph % 24.2 % N 20.0-42.0 [place] % 7.9 % N 4.3-13.2 Eo% 3.3 % N 0.0-6.6 Bas% 0.3 % N 0.0-1.1 Neut# 5.79 K/uL N 1.8-7.0 Lymph # 2.18 K/uL N 1.0-4.0 [place] # 0.71 K/uL N 0.3-0.9 Eos # 0.30 K/uL N 0.0-0.5 Baso # 0.03 K/uL N 0.0-0.1 Laboratory test 11/30/2018 [facility] D-Dimer, 0.30 ug/mL [address] [place] [address] [phone] Poc Urinalysis 11/30/2018 [facility] Poc Glucose, Negative Negative [phone] Urine Poc Bilirubin, Urine Negative Negative Poc Ketone, Urine Negative Negative Poc Specific Lynn, Urine 1.015 N 1.010-1.030 Poc Blood, Urine 1+ Abnormal Negative Poc pH, Urine 6.5 N 5-9 Poc Protein, Urine Negative Negative Poc Urobilinogen, Urine 0.2 Negative Poc Nitrite, Urine Negative Negative Poc Leukocytes, Urine Negative Negative Poc Color, Urine Yellow Poc Clarity, Urine Clear 6 Laboratory test 07/01/2017 [facility] Vitamin 22.6 Low 30.0-100.0 7, finding [address] D,25-Hydroxy ng/mL 8 [place] [address] [phone] Glycohemoglobin 07/01/2017 [facility] Glycohemoglobin 5.3 % N 4.2-6.[address] (A1c) [place], [place] [id number] [phone] eAG 105 mg/dL LDL Cholesterol 07/01/2017 [facility] Cholesterol 251 mg/dL High <200 10 Profile [address] [place], [place] [id number] [phone] Triglycerides 181 mg/dL High <150 11 HDL Cholesterol 62 mg/dL >40 12 LDL-Cholesterol 153 mg/dL < 100 13 Reflex add FT3? Y Reflex add FT4? Y Comprehensive Metabolic 07/01/2017 [facility] Glucose 92 mg/dL N 74-106 Panel [address] [place], [place] [id number] [phone] BUN 15 mg/dL N 7-18 Creatinine 0.7 mg/dL N 0.6-1.3 Glom Filtration Rate, Estimate >60 mL/min >60 If >60 mL/min >60 14 BUN/Creat 21.4 ratio Sodium 139 mmol/L N 136-145 Potassium 4.3 mmol/L N 3.5-5.1 Chloride 104 mmol/L N 98-107 Carbon Dioxide 29 mmol/L N 21-32 Anion Gap 6 mEq/L Low 8-16 Calcium 8.3 mg/dL Low 8.5-10.1 Total Protein 7.5 g/dL N 6.4-8.2 Albumin 3.8 g/dL N 3.4-5.0 Globulin 3.7 g/dL N 1.9-4.3 Alb/Glob 1.0 ratio Bilirubin,Total 0.2 mg/dL N 0.2-1.0 Sgot/Ast 18 U/L N 15-37 SGPT/Alt 41 U/L N 12-78 Alkaline Phosphatase 68 U/L N 45-117 Reflex add FT3? Y Reflex add FT4? Y CBS W/Automated Diff 07/01/2017 [facility] White Blood 7.3 K/uL N 3.1-10.[address] [place] [address] [phone] Red Blood Count 4.28 M/uL N 3.90-5.40 Hemoglobin 13.2 gm/dL N 11.6-15.8 Hematocrit 39.8 % N 36.0-46.1 Mean Cell Volume 93.0 fl N 80.9-99.0 Mean Corpuscular HGB 30.8 pg N 25.9-32.7 Mean Corpuscular HGB Conc 33.2 g/dL N 30.8-34.3 Platelet Count 294 K/uL N 150-400 Red Cell Distri Width SD 42.6 fl N 3-47 Red Cell Distri Width %CV 12.7 % N 11.7-14.4 Mean Platelet Volume 11.1 fL N 8.9-12.4 Neut% 60.1 % N 40.4-72.8 Lymph % 30.5 % N 20.0-42.0 [place] % 7.4 % N 4.3-13.2 Eo% 1.6 % N 0.0-6.6 Bas% 0.4 % N 0.0-1.1 Neut# 4.38 K/uL N 1.8-7.0 Lymph # 2.22 K/uL N 1.0-4.0 [place] # 0.54 K/uL N 0.3-0.9 Eos # 0.12 K/uL N 0.0-0.5 Baso # 0.03 K/uL N 0.0-0.1 TSH Reflex FT4 07/01/2017 [facility] Thyroid Stim 1.44 uIU/mL N 0.30-4.20 And/Or FT3 [address] [place] [address] [phone] Reflex add FT3? Y Reflex add FT4? Y Laboratory test 03/09/2013 [facility] Breast Biopsy - See Note [address] [place] [address] [phone] 1 BACK AND CHEST PAIN 2 Note: Persistent reduction for 3 months or more in an eGFR <60 mL/min/1.73 m2 defines CKD. Patients with eGFR values >/=60 mL/min/1.73 m2 may also have CKD if evidence of persistent proteinuria is present. The original MDRD equation for estimated GFR is not valid for patients less than 18 years of age. Additional information may be found at www.kdoqi.org. 3 0.0 - 0.045 ng/mL: Normal 0.046 - 0.5 ng/mL: Suggestive 0.6 - 1.5 ng/mL: Consistent 4 Method: Quidel QuickVue One-Step Immunoassay 5 <=0.49 ug/mL - Low likelihood of DIC, DVT or Pulmonary Embolism >0.49 ug/mL - Additional testing should be done to rule out DIC, DVT, or Pulmonary embolism as clinically indicated. ([facility] has established a 97.89% negative predictive value for thrombotic disease when a cutoff value of 0.5 ug/mL is used.) 6 Flat Finisher: [id number] F41.9 E66.9 F33.1 8 Vitamin D deficiency has been defined by the [place] of [employer] and an Endocrine Society practice guideline as a level of serum 25-OH vitamin D less than 20 ng/mL (1,2). The Endocrine Society went on to further define vitamin D insufficiency as a level between 21 and 29 ng/mL (2). 1. IOM ([place] of Medicine). 2010. Dietary reference intakes for calcium and D. [place]: The National Academies Press. 2. Lisa MAKI, Greg DOWNEY, Whitney SERRANO, et al. Evaluation, treatment, and prevention of vitamin D deficiency: an Endocrine Society clinical practice guideline. JCEM. 2010; 96(7):1911-30. Performed at: RN - [facility] [address] [id number] Knitter Mechanic: Jeanne Brantley MD, Phone: [phone] Elevated levels of HbA1c suggest the need for more aggressive treatment of glycemia. The [place] Diabetes Association recommends that a primary goal of therapy should be a HbA1c of <7% and that physicians should re-evaluate the treatment regimen in patients with HbA1c values consistently >8%. 10 Reference Guidelines*: Desirable: ........... < 200 mg/dL Borderline High: ..... 200-239 mg/dL High: ................ >=240 mg/dL * The National Cholesterol Education Program (NCEP) 11 Reference Guidelines*: Normal: ............. < 150 mg/dL Borderline High: .... 150-199 mg/dL High: ............... 200-499 mg/dL Very High: .......... > 500 mg/dL * Source: National Cholesterol Education Program (NCEP) 12 Reference Guidelines*: Low HDL: ..... < 40 mg/dL Normal: ..... 40-60 mg/dL Desirable: ... > 60 mg/dL *The National Cholesterol Education Program(NCEP) 13 Reference Guidelines*: Optimal:........... <100 mg/dL Near Optimal....... 100-129 mg/dL Borderline High.... 130-159 mg/dL High............... 160-189 mg/dL Very High.......... >=190 mg/dL * Source: National Cholesterol Education Program (NCEP) 14 Note: Persistent reduction for 3 months or more in an eGFR <60 mL/min/1.73 m2 defines CKD. Patients with eGFR values >/=60 mL/min/1.73 m2 may also have CKD if evidence of persistent proteinuria is present. The original MDRD equation for estimated GFR is not valid for patients less than 18 years of age. Additional information may be found at www.kdoqi.org. 15 This is a corrected report. Any previous versions are stored internally and are available if necessary. 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 SEE COMMENT. Paulie 1016 INTERPRETATION COMMENT The adequacy of sampling should be confirmed by comparison with pre and post radiographs and the radiographic findings should be consistent with a fibroadenoma. In the absence of concordance, additional investigation and/or continued follow-up may be indicated. 19 March 2013 QA Review: Dr. Prajapati reviewed this case as part of our ongoing internal QA review process and suggested the diagnosis of PASH. I agree the stroma has qualities of this diagnosis and feel this is also POSSIBLE,if nor more likely than a fibroadenoma. While both lesions are benign, one textbook I consulted recommended wide local excision ([facility] Breast Pathology 2nd Ed, 2001) as treatment for PASH. In discussing this case with Dr. Rosenbaum on the day of amendment, I suggested additional research to see if present follow-up management differs between the two diagnoses, then outside pathology consultation may be indicated. GROSS Received in formalin labeled, "LEFT BREAST MASS" are three pieces of geiger, soft tissue measuring up to 1.9 cm. in length and 0.1 cm. in diameter. Submitted in toto in one block. JW/juanf MICROSCOPIC The majority of this demonstrates benign breast tissue. A few pieces do demonstrate double layered epithelial elements in a hyalinized stroma, with an overall pattern supportive of fibroadenoma. It should be noted that the tissue is relatively scant, and this finding is only present in a few of the tissue strands. PRE OPERATIVE DIAGNOSIS Mass left breast REVIEW CODE CODE: I JOSÉ Chaney MD 03/20/13 1357 Procedures Date Code Description Status 07/06/201838477 Asp./Injection major joint Completed 09/08/2017 11182 Apply Splint Finger Static Completed 09/06/2017 16867 Apply Splint Finger Static Completed 08/30/2017 47240 Application short arm splint forearm to wrist static Completed 08/25/2017 74962 Suture Nerve, Digital Hand Or Foot Completed 08/25/2017 27851 Excision Neuroma, Digital Nerve One Or Both, Same Digit Completed 04/07/2017 [id number] Mammogram Completed 03/03/2016 [id number] Colonoscopy Completed 10/15/2015 45956 Radiology, Ankle Complete Completed 10/15/2015 27361 Radiology, Ankle Complete Completed 07/25/2015 56072 Echocardiogram Complete Completed 08/06/2013 83642 Radiology, L-S Spine Complete Completed 07/18/2013 33309 Radiology, Pelvis 1 Or 2 Views Completed 06/28/2013 37276 Echocardiogram Complete Completed 08/22/2012 [id number] Mammogram Completed Encounters Type Date Location Provider Dx Diagnosis Office Visit 09/20/2018 Family Medicine Juanune, R14.0 Abdominal 1:45p tommy Peña RD [employer] (gaseous) Office Visit 07/27/2018 Orthopaedic Office Cherelle Mendez, S43.422D Sprain of left 1:30p rotator cuff capsule, subsequent encounter M19.012 Primary osteoarthritis, left shoulder Office Visit 07/06/2018 1:15p Orthopaedic Andrea S46.002D Unsp inj Office MD Cherelle musc/tend the rotator cuff of l shoulder, subs X58.xxxD Exposure to other specified factors, subsequent encounter Office Visit 06/23/2018 Orthopaedic Krissy Mclean S43.422D Sprain of left 10:45a Office PA rotator cuff capsule, subsequent encounter Office Visit 06/15/2018 Orthopaedic Krissy Mclean, S43.422A Sprain of left 1:00p Office PA rotator cuff capsule, initial encounter M25.512 Pain in left shoulder Office Visit 02/17/2018 10:45a Family Medicine Cristy Munroe F41.[address], M.D. unspecified K21.9 Gastro-esophageal reflux disease without esophagitis R07.0 Pain in throat Office Visit 11/11/2017 Family Medicine Cristy Munroe F41.9 Anxiety disorder, 1:45p Duy MORGAN M.D. 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 unspecified Office Visit 07/01/2017 1:45p [facility] Cristy Gifford F41.9 Anxiety disorder, Duy MORGAN M.D. unspecified F33.1 Major depressive disorder, recurrent, moderate E66.9 Obesity, unspecified G43.109 Migraine with aura, not intractable, w/o status migrainosus K21.9 Gastro-esophageal reflux disease without esophagitis Office Visit 10/15/2015 9:15a Orthopaedic Office Thom, S93.422D Sprain of Jade S., deltoid RPAC ligament of left ankle, subs encntr S93.412D Sprain of calcaneofibular ligament of left ankle, subs M25.572 Pain in left ankle and joints of left foot Office Visit 07/23/2015 3:30p Orthopaedic Office Thom S93.422D Sprain of Jade S., deltoid RPAC ligament of left ankle, subs encntr Office Visit 06/10/2015 2:15p Orthopaedic Office Thom, 845.01 Sprains & Jade S., Strains Ankle RPAC Deltoid (Ligament) 845.02 Sprains & Strains Ankle Calcaneofibular (Ligament) 719.47 Pain Joint Ankle & Foot Office Visit 04/29/2014 Surgical Office Robi, 793.89 Abnormal Findings 3:00p MD Danny On Radiological Exam Of Breast Other Office Visit 10/22/2013 Surgical Office Robi, 793.89 Abnormal Findings 2:00p MD Danny On Radiological Exam Of Breast Other Office Visit 08/20/2013 Orthopaedic Tony Ordonez 724.2 Lumbago 9:45a Alysia Moore MD, FACS 724.3 Sciatica 722.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 Office Visit 08/06/2013 9:45a Orthopaedic Office Tony Ordonez, 724.2 Lumyaquelin COOLEY, FACS 724.3 Sciatica 719.45 Pain Joint Pelvic Region & Thigh Office Visit 07/18/2013 9:45a Orthopaedic Office Tony Ordonez 719.45 Pain Joint MD Oscar, FACS Pelvic Region & Thigh 724.2 Lumbago 724.3 Sciatica Office Visit 06/28/2013 3:49p [facility] Rossana Hurtado, 785.1 [facility] Darcy 300.02 Anxiety Disorder Generalized Office Visit 03/14/2013 1:30p Surgical Office Robi, 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
[2019-01-14 13:16] VITALS: BP 146/96
--- NOTE | 2019-01-14 13:44 | UC ---
Respiratory Complaint HPI - HPI Summary HPI Summary: Pt presents with c/o gradual onset of cough, nasal and chest congestion, wheezing X 4 days. Pt reports that she is remodeling a house and has known allergies to molds, spores and dust. Pt states she believes she has been exposed to all of those things with house remodel. Is not takinga nd antihistamine - History of Current Complaint Chief Complaint: UCRespiratory Stated Complaint: COUGH Time Seen by Provider: 01/14/19 13:23 Hx Last Menstrual Period: 2 years ago ?: No Onset/Duration: Gradual Onset, Lasting Days, Still Present Timing: Constant Severity Initially: Mild Severity Currently: Moderate Pain Intensity: 0 Character: Cough: Nonproductive Aggravating Factors: Allergens, Exertion, Deep Breaths, Recumbent Position Alleviating Factors: Nothing Associated Signs And Symptoms: Positive: Wheezing, URI, Nasal Congestion Related History: Seasonal Allergies - Risk Factors Pulmonary Embolism Risk Factors: Negative Cardiac Risk Factors: Negative Pseudomonas Risk Factors: Negative Tuberculosis Risk Factors: Negative - Allergies/Home Medications Allergies/Adverse Reactions: Allergies Allergy/AdvReac Type Severity Reaction Status Date / Time Penicillins Allergy Hives Verified 01/14/19 13:09 Home Medications: Home Medications 1 Other Pill- Not Sure 1 tab PO BID 01/14/19 [History] Cholecalciferol TAB* [Vitamin D TAB*] 2,000 units PO DAILY 01/14/19 [History Confirmed 01/14/19] PMH/Surg Hx/FS Hx/Imm Hx Previously Healthy: Yes - Surgical History Surgical History: Yes Surgery Procedure, Year, and Place: 2007 Tubal Ligation. 2016 - uterine ablation. BREAST AUGMENTATION. WISDOM TEETH SURG REMOVED. KNEE - SCOPED - ? Rt. Left Breast Bioposy x2 - Family History Known Family History: Positive: None, Hypertension, Diabetes Negative: Cardiac Disease - Social History Occupation: Employed Full-time Lives: With Family Alcohol Use: Occasionally Alcohol Amount: Weekends Substance Use Type: None Smoking Status (MU): Former Smoker Have You Smoked in the Last Year: No When Did the Patient Quit Smoking/Using Tobacco: 2010 - Immunization History Most Recent Influenza Vaccination: none Most Recent Tetanus Shot: unknown Vaccination Up to Date: No Review of Systems All Other Systems Reviewed And Are Negative: Yes Constitutional: Positive: Negative Skin: Positive: Negative Eyes: Positive: Negative ENT: Positive: Nasal Discharge, Sinus Congestion Respiratory: Positive: Shortness Of Breath, Cough Cardiovascular: Positive: Negative Gastrointestinal: Positive: Negative Genitourinary: Positive: Negative Motor: Positive: Negative Neurovascular: Positive: Negative Musculoskeletal: Positive: Negative Neurological: Positive: Negative Psychological: Positive: Negative Is Patient Immunocompromised?: No Physical Exam Triage Information Reviewed: Yes Appearance: Well-Appearing Vital Signs: Initial Vital Signs Temp 97.6 F 01/14/19 13:11 Pulse 108 01/14/19 13:11 Resp 18 01/14/19 13:11 BP 146/96 01/14/19 13:11 Pulse Ox 98 01/14/19 13:11 Vital Signs Reviewed: Yes Eye Exam: Normal ENT: Positive: Nasal congestion Neck exam: Normal Respiratory: Positive: Wheezing Cardiovascular Exam: Normal Musculoskeletal Exam: Normal Neurological Exam: Normal Psychological Exam: Normal Skin Exam: Normal Respiratory Course/Dx - Differential Dx/Diagnosis Differential Diagnosis/HQI/PQRI: Bronchitis, Exacerbation Of COPD Provider Diagnosis: Reactive airway disease that is not asthma Discharge - Sign-Out/Discharge Documenting (check all that apply): Patient Departure All imaging exams completed and their final reports reviewed: No Studies - Discharge Plan Condition: Stable Disposition: HOME Prescriptions: Albuterol HFA INHALER* [Ventolin HFA Inhaler*] 1 - 2 puff INH Q4H PRN #1 mdi PRN Reason: Sob/Wheezing Benzonatate CAP* [Tessalon 100 MG CAP*] 200 mg PO Q8H PRN #30 cap PRN Reason: Cough Cetirizine HCl [Zyrtec] 10 mg PO DAILY #20 capsule predniSONE TAB* [Deltasone 10 MG TAB*] 30 mg PO DAILY #12 tab Patient Education Materials: Reactive Airways Disease (ED) Referrals: Chuck Borrero MD [Primary Care Provider] - If Needed - Billing Disposition and Condition Condition: STABLE Disposition: Home - Attestation Statements Provider Attestation: Per institutional requirements, I have reviewed the chart, however, I was not consulted specifically or made aware of this patient by the midlevel provider. I did not personally evaluate, interact with , or disposition this patient.
== END 2019-01-14 13:51 | disposition home or self-care (01) ==
LOC: UCCORT 12:00
DX: J98.8 Other specified respiratory disorders (principal); R05 Cough; R09.81 Nasal congestion; R09.89 Other specified symptoms and signs involving the circulatory and respiratory systems; R06.2 Wheezing; Z87.891 Personal history of nicotine dependence; Z88.0 Allergy status to penicillin
CPT/HCPCS: 99212; G0463

== ENCOUNTER 2019-03-04 10:07 | Emergency (ER) | payer BC ==
[2019-03-04 10:50] VITALS: BP 150/96
--- NOTE | 2019-03-04 12:09 | UC ---
Lower Extremity/Ankle HPI - HPI Summary HPI Summary: 38 yo female with right ankle injury inversion occurred 10 pm last night unable to bear wt relief with hydrocodone - History of Current Complaint Chief Complaint: UCLowerExtremity Stated Complaint: RIGHT ANKLE INJUR Time Seen by Provider: 03/04/19 11:00 Hx Obtained From: Patient Hx Last Menstrual Period: HX OF ABLATION Onset/Duration: Sudden Onset Severity Initially: Severe Severity Currently: Moderate Pain Intensity: 6 Pain Scale Used: 0-10 Numeric Aggravating Factor(s): Standing, Ambulation Alleviating Factor(s): Rest, Elevation, Other - hydrocodone Able to Bear Weight: No Feet (Multiple View): 1 - tender/swollen - Allergies/Home Medications Allergies/Adverse Reactions: Allergies Allergy/AdvReac Type Severity Reaction Status Date / Time Penicillins Allergy Hives Verified 03/04/19 10:44 Home Medications: Home Medications Colestipol (NF) 2 tab BID 03/04/19 [History Confirmed 03/04/19] PMH/Surg Hx/FS Hx/Imm Hx Previously Healthy: Yes - Surgical History Surgical History: Yes Surgery Procedure, Year, and Place: 2007 Tubal Ligation. 2016 - uterine ablation. BREAST AUGMENTATION. WISDOM TEETH SURG REMOVED. KNEE - SCOPED - ? Rt. Left Breast Bioposy x2 - Family History Known Family History: Positive: Hypertension, Diabetes Negative: Cardiac Disease - Social History Alcohol Use: Occasionally Alcohol Amount: Weekends Substance Use Type: None Smoking Status (MU): Former Smoker Have You Smoked in the Last Year: No When Did the Patient Quit Smoking/Using Tobacco: 2010 - Immunization History Most Recent Influenza Vaccination: none Most Recent Tetanus Shot: unknown Vaccination Up to Date: No Review of Systems All Other Systems Reviewed And Are Negative: Yes Constitutional: Positive: Negative Skin: Positive: Negative Eyes: Positive: Negative ENT: Positive: Negative Respiratory: Positive: Negative Cardiovascular: Positive: Negative Gastrointestinal: Positive: Negative Genitourinary: Positive: Negative Motor: Negative: Weakness Neurovascular: Positive: Negative Musculoskeletal: Positive: Arthralgia - right ankle, Edema - lat right ankle Neurological: Positive: Negative Psychological: Positive: Negative Physical Exam Triage Information Reviewed: Yes Appearance: Well-Appearing, No Pain Distress, Well-Nourished Vital Signs: Initial Vital Signs Temp 97.6 F 03/04/19 10:45 Pulse 111 03/04/19 10:45 Resp 16 03/04/19 10:45 BP 150/96 03/04/19 10:45 Pulse Ox 99 03/04/19 10:45 Vital Signs Reviewed: Yes Eyes: Positive: Conjunctiva Clear ENT: Positive: Hearing grossly normal. Negative: Trismus, Muffled voice, Hoarse voice Neck: Positive: Supple, Nontender, No Lymphadenopathy Respiratory: Positive: Lungs clear, Normal breath sounds, No respiratory distress, No accessory muscle use Cardiovascular: Positive: RRR, No Murmur Musculoskeletal: Positive: Other: - see image Neurological: Positive: Alert Psychological Exam: Normal Skin Exam: Normal Diagnostics - Radiology No standard instances Radiology Interpretation Completed By: Radiologist Summary of Radiographic Findings: STS, no fx Lower Extremity Course/Dx - Differential Dx/Diagnosis Provider Diagnosis: Right ankle sprain Discharge - Sign-Out/Discharge Documenting (check all that apply): Patient Departure All imaging exams completed and their final reports reviewed: Yes - Discharge Plan Condition: Stable Disposition: HOME Prescriptions: HYDROcodone/ACETAMIN 5-325 MG* [[place] 5-325 TAB*] 1 tab PO Q4H PRN #10 tab MDD 5 PRN Reason: Pain - Severe Ibuprofen TAB* [Motrin TAB*] 600 mg PO QID PRN #40 tab PRN Reason: Pain Patient Education Materials: Ankle Sprain (ED), Crutch Instructions (ED), R.I.C.E. Treatment (ED) Referrals: Chuck Borrero MD [Primary Care Provider] - 2 Weeks (recheck in about two week if unable to bear wt completely pain free) Additional Instructions: crutches until able to bear wt comfortably be sure to get rechecked in about 2 weeks if not completely better - Billing Disposition and Condition Condition: STABLE Disposition: Home
== END 2019-03-04 12:26 | disposition home or self-care (01) ==
LOC: UCCORT 10:07
DX: S93.401A Sprain of unspecified ligament of right ankle, initial encounter (principal); X58.XXXA Exposure to other specified factors, initial encounter; Z87.891 Personal history of nicotine dependence
CPT/HCPCS: 99213; G0463

== ENCOUNTER 2019-05-21 13:50 | Emergency (ER) | payer BC ==
--- OUTSIDE RECORDS SUMMARY | 2019-05-21 14:57 | XMS REPORT | Continuity of Care Document ---
:1980 External Reference #:[id number] Author Name Cain Ramirez Care Team Providers Name Role Phone Chuck Borrero MD Primary Care Physician Unavailable Payers Date Identification Numbers Payment Provider Subscriber Policy Number: [id number] [employer] Mary Sal PayID: [id number] [address] [address] [place] [address] Onset: 2017 Policy Number: [id number] Workers Compensation Mary Noonan Group Name: PayID: [id number] Family History Date Family Member(s) Observation Comments General Diabetes, Non Insulin Dependent General Diabetes General Hypertension General Hypertension General Stomach Cancer Social History Type Date Description Comments Sex Unknown Marital Status Lives With Spouse 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 [employer] Cigarette Use Quit 5 Years Ago Tobacco Use Start: Unknown Never Smoked Cigars Tobacco Use Start: Unknown Never Smoked A Pipe Smokeless Tobacco Never Used Smokeless Tobacco ETOH Use Drinks 1 Alcoholic Beverage Per Week ETOH Use Occasionally consumes alcohol Tobacco Use Start: Unknown End: Patient is a former Quit 8 years ago Unknown smoker Recreational Drug Use Denies Drug Use Smoking Status Reviewed: 05/15/19 Patient is a former Quit 8 years ago smoker Exercise Type/Frequency Exercises sporadically Allergies, Adverse Reactions, Alerts Active Allergies Reaction Severity Comments Date NKDA 10/30/2013 Penicillin Swelling and Rash 05/16/2017 Medications Active Medications SIG Qnty Indications Ordering Date Provider Colestipol HCL 2 tabs by mouth Unknown 1gm twice daily Tablets Hyoscyamine Sulfate 1 tab by mouth Unknown ER twice daily 0.375mg Tablets ER 12HR Ibuprofen by mouth three Unknown 800mg times a day as Tablets needed Vitamin D 2 tabs by mouth Unknown 1000mcg everyday Tablets Alprazolam one by mouth as Unknown 0.25mg needed for anxiety Tablets Omeprazole 1 by mouth every Unknown 40mg day Capsules DR Ruff 1 by mouth every 30tabs Unknown 20mg Tablets day Flonase 2 intranasal puffs 3units Unknown 50mcg/Act to each nostril as Suspension needed Acidophilus 1 po qd Unknown Capsules Multi-Day Unknown Tablets History Medications Vitamin B-12 1 by mouth every 90tabs Jenaro Newman 05/16/2017 - Tablets day 05/14/2019 Amitriptyline HCL 1 po qhs 90tabs Unknown - 25mg 05/14/2019 Tablets Fish Oil Burp-Less po 1 hs 60caps Unknown - 1000mg 05/14/2019 Capsules Claritin 1 po qd 30tabs Unknown - 10mg Tablets 05/14/2019 Amitriptyline HCL take 1 tablets po Unknown - 10mg daily 05/14/2019 Tablets [place]-3 Fish Oil 2 po daily Unknown - Capsules 05/14/2019 Probiotic Daily 1 by mouth every Unknown - Capsules day 05/14/2019 Medications Administered in Office Medication SIG Qnty Indications Ordering Provider Date Celestone 3 mg and 3mg Jenaro Newman MD 05/23/2017 Injection Vital Signs Date Vital Result Comment 05/15/2019 2:00pm Height 64.75 inches 5'4.75" Heart Rate 88 /min BP Systolic Sitting 130 mmHg BP Diastolic Sitting 98 mmHg Respiratory Rate 16 /min Pain Level 0 05/23/2017 1:34pm Height 64.75 inches 5'4.75" Weight 200.00 lb Heart Rate 68 /min BP Systolic Sitting 118 mmHg BP Diastolic Sitting 70 mmHg Respiratory Rate 16 /min Pain Level 2 BMI (Body Mass Index) 33.5 kg/m2 05/16/2017 11:20am Height 64.75 inches 5'4.75" Weight 207.00 lb Heart Rate 72 /min BP Systolic Sitting 130 mmHg BP Diastolic Sitting 96 mmHg Respiratory Rate 20 /min Pain Level 2 BMI (Body Mass Index) 34.7 kg/m2 10/30/2013 2:24pm Height 64 inches 5'4" Weight 170.00 lb Heart Rate 78 /min BP Systolic Sitting 124 mmHg BP Diastolic Sitting 80 mmHg BMI (Body Mass Index) 29.2 kg/m2 Procedures Date Code Description Status 05/15/2019 Inject/Drain Joint/Bursa Major W/O US Completed 05/23/2017 Inject/Drain Joint/Bursa Major W/O US Completed 05/16/2017 50204 Xray Knee 3 Views Completed 10/30/2013 05299 Tympanometry Completed Encounters Type Date Location Provider Dx Diagnosis Office Visit 05/23/2017 [facility] Jenaro Newman, M76.51 Patellar tendinitis, 1:30p Of Gustavo Salter MD right knee Office Visit 05/16/2017 [facility] Jenaro Newman, M23.91 Unspecified internal 11:00a Of Gustavo Salter MD derangement of right knee Office Visit 10/30/2013 [facility], 389.10 Hearing Loss 2:15p [facility] Sensorineural Unspec Office Visit 12/19/2012 Neurosurgery Chava Flores 729.1 Myalgia & Myositis 11:00a Services Of Gustavo Singer M.D. Unspec Plan of Treatment 05/15/2019 - Jenaro Newman, MDM76.31 Iliotibial band syndrome, right legFollow up:Follow up: As needed
[2019-05-21 15:03] VITALS: BP 139/84
--- NOTE | 2019-05-21 15:06 | UC ---
UC General HPI - History of Current Complaint Stated Complaint: EAR PAIN Time Seen by Provider: 05/21/19 14:57 Hx Last Menstrual Period: HX OF ABLATION - Allergy/Home Medications Allergies/Adverse Reactions: Allergies Allergy/AdvReac Type Severity Reaction Status Date / Time Penicillins Allergy Hives Verified 05/21/19 14:58 PMH/Surg Hx/FS Hx/Imm Hx GI/ History: Gastroesophageal Reflux Psychological History: Depression - Surgical History Surgical History: Yes Surgery Procedure, Year, and Place: 2006 Tubal Ligation. 2016 - uterine ablation. BREAST AUGMENTATION. WISDOM TEETH SURG REMOVED. KNEE - SCOPED - ? Rt. Left Breast Bioposy x2 - Family History Known Family History: Positive: None, Hypertension, Diabetes Negative: Cardiac Disease - Social History Alcohol Use: Occasionally Alcohol Amount: Weekends Substance Use Type: None Smoking Status (MU): Former Smoker Have You Smoked in the Last Year: No When Did the Patient Quit Smoking/Using Tobacco: 2010 - Immunization History Most Recent Influenza Vaccination: none Most Recent Tetanus Shot: unknown Vaccination Up to Date: No Course/Dx - Diagnoses Provider Diagnosis: Eustachian tube dysfunction Discharge - Sign-Out/Discharge Documenting (check all that apply): Patient Departure All imaging exams completed and their final reports reviewed: No Studies - Discharge Plan Condition: Stable Disposition: HOME Patient Education Materials: Earache (ED) Referrals: Chuck Borrero MD [Primary Care Provider] - If Needed Barron Rosado MD [Medical Doctor] - Additional Instructions: FOLLOW UP WITH DR ROSADO, YOUR ENT IF NOT BETTER IN 7 DAYS OR SOONER IF WORSE. START FLONASE PER LABEL X 14 DAYS AND A DECONGESTANT PER LABEL ROUTINELY ROUTINELY X 5 DAYS. - Billing Disposition and Condition Condition: STABLE Disposition: Home
--- NOTE | 2019-05-21 15:18 | UC ---
UC General HPI - HPI Summary HPI Summary: DAY 4 OF EARS FEELING PLUGGED, MUFFLED AND DIZZINESS. + NASAL CONGESTION. NO HEADACHE, FEVER/CHILLS. NO ITCHY EYES OR SNEEZING. - History of Current Complaint Chief Complaint: UCEar Stated Complaint: EAR PAIN Time Seen by Provider: 05/21/19 14:57 Hx Obtained From: Patient Hx Last Menstrual Period: HX OF ABLATION Pain Intensity: 5 Associated Signs & Symptoms: Negative: Fever, Headache - Allergy/Home Medications Allergies/Adverse Reactions: Allergies Allergy/AdvReac Type Severity Reaction Status Date / Time Penicillins Allergy Hives Verified 05/21/19 14:58 PMH/Surg Hx/FS Hx/Imm Hx GI/ History: Gastroesophageal Reflux Psychological History: Depression - Surgical History Surgical History: Yes Surgery Procedure, Year, and Place: 2006 Tubal Ligation. 2016 - uterine ablation. BREAST AUGMENTATION. WISDOM TEETH SURG REMOVED. KNEE - SCOPED - ? Rt. Left Breast Bioposy x2 - Family History Known Family History: Positive: None, Hypertension, Diabetes Negative: Cardiac Disease - Social History Alcohol Use: Occasionally Alcohol Amount: Weekends Substance Use Type: None Smoking Status (MU): Former Smoker Have You Smoked in the Last Year: No When Did the Patient Quit Smoking/Using Tobacco: 2010 - Immunization History Most Recent Influenza Vaccination: none Most Recent Tetanus Shot: unknown Vaccination Up to Date: No Review of Systems All Other Systems Reviewed And Are Negative: Yes Constitutional: Negative: Fever, Chills Skin: Negative: Rash Eyes: Negative: Drainage, Eye Redness ENT: Negative: Sore Throat, Ear Ache - NO PAIN, Nasal Discharge Neurological: Negative: Headache Physical Exam Triage Information Reviewed: Yes Appearance: Well-Appearing Vital Signs: Initial Vital Signs Temp 97.7 F 05/21/19 15:00 Pulse 83 05/21/19 15:00 Resp 16 05/21/19 15:00 BP 139/84 05/21/19 15:00 Pulse Ox 100 05/21/19 15:00 Vital Signs Reviewed: Yes Eyes: Positive: Conjunctiva Clear ENT: Positive: Pharynx normal, TMs normal - Canals clear. No mastoid tenderness or auricular adenopathy.. Negative: Nasal congestion, Nasal drainage Neck: Positive: Supple, Nontender, No Lymphadenopathy Respiratory: Positive: No respiratory distress Cardiovascular: Positive: RRR Neurological: Positive: Other: - A&O. CN grossly intact. Steady gait. Psychological: Positive: Age Appropriate Behavior Skin Exam: Normal Skin: Negative: Rashes Course/Dx - Differential Dx - Multi-Symptom Differential Diagnoses: Other - no concern for infection or itracranial pathology. - Diagnoses Provider Diagnosis: Eustachian tube dysfunction Discharge - Sign-Out/Discharge Documenting (check all that apply): Patient Departure All imaging exams completed and their final reports reviewed: No Studies - Discharge Plan Condition: Stable Disposition: HOME Patient Education Materials: Earache (ED) Referrals: Chuck Borrero MD [Primary Care Provider] - If Needed Barron Rosado MD [Medical Doctor] - Additional Instructions: FOLLOW UP WITH DR ROSADO, YOUR ENT IF NOT BETTER IN 7 DAYS OR SOONER IF WORSE. START FLONASE PER LABEL X 14 DAYS AND A DECONGESTANT PER LABEL ROUTINELY ROUTINELY X 5 DAYS. - Billing Disposition and Condition Condition: STABLE Disposition: Home - Attestation Statements Provider Attestation: This patient was not seen by me. I was available for consult. [facility]
== END 2019-05-21 15:17 | disposition home or self-care (01) ==
LOC: UCCORT 13:50
DX: H69.80 Other specified disorders of Eustachian tube, unspecified ear (principal); Z87.891 Personal history of nicotine dependence; Z88.0 Allergy status to penicillin
CPT/HCPCS: 99211; G0463